=== PATIENT | female | born 1960 | race Caucasian/White ===

== ENCOUNTER 2023-07-19 10:38 | Emergency (ER) | payer BC, SELFPAY ==
[2023-07-19 10:55] VITALS: BP 135/98; BMI 28.7
--- NOTE | 2023-07-19 11:50 | ED.GENMED ---
History of Present Illness
General
Chief Complaint: Allergic Reaction
Time Seen by Provider: 07/19/23 11:29
Travel History
Have you had any contact with someone who has COVID-19?: No
Do you have any symptoms of coronavirus? Fever > 100 degrees, chills, cough, shortness of breath, sore throat, loss of taste or smell, muscle aches, or headache?: No
History of Present Illness
History of Present Illness:
62 yo female presents for evaluation of throat pain and dysphagia. Has hx of latex allergy And she states that anytime she is exposed she has a very similar presentation. Reports there is a large ulceration to the back of the throat causing her
pain. She did use an EpiPen as well as Benadryl this morning with only modest improvement. Denies any difficulty breathing or wheezing
Past History
Past History
ED Past Medical History: HTN, Hypercholesterolemia and Other (Diabetes)
ED Past Surgical History: Bowel resection, Gynecological and Other
Social History
Tobacco: Non-smoker
Alcohol: Occasional
Drug: None
Personal:
Living: with family
Employment: Employed
Family History
Family History: Other
Review of Systems
Review of Systems
Allergies reviewed?: Yes
All Other Systems: ROS reviewed and negative except as documented in HPI and ROS
Phy Exam
Physical Exam
Physical Exam:
GEN: Well appearing, NAD, WDWN
HEENT: Oral mucosa moist, no scleral icterus. Large linear ulceration to soft palate extending into uvula, no uvular edema or oropharyngeal edema
Cardiac: Regular rate
Lung: No respiratory distress, no tachypnea
MSK: No gross deformity or injuries
Skin: Good color, no pallor or jaundice, no rashes
Neuro: AO x3, moves all extremities freely
Psych: Calm, cooperative
Course
Orders/Labs/Results
Orders:
Orders
07/19/23 11:50
Dexamethasone Pf [Decadron] 10 mg PO NOW STA
Vital Signs
Initial and Last Documented VS:
Initial Vital Signs
Temp Pulse Resp BP Pulse Ox
98.2 F 94 16 135/98 98
07/19/23 10:55 07/19/23 10:55 07/19/23 10:55 07/19/23 10:55 07/19/23 10:55
Last Documented Vital Signs
Temp Pulse Resp BP Pulse Ox
98.2 F 94 16 156/68 97
07/19/23 10:55 07/19/23 12:03 07/19/23 12:03 07/19/23 12:03 07/19/23 12:03
MDM/Problems Addressed
MDM/Problems Addressed:
Will treat with corticosteroids as this is likely injury or allergy from ingested food yesterday
*Critical Care Note
Total Time (30-74mins, 75-104mins- exclusive of procedures): Not Applicable
ED Attending Note
-
Portions of this chart may have been created with voice recognition software.� Occasional wrong word or��sound alike� substitutions may have occurred due to the inherent limitations of voice recognition software.
Discharge Plan
Departure
Patient Disposition: Home (Routine Discharge)
Date of Disposition: 07/19/23
Time of Disposition: 11:50
Patient with high blood pressure during this ER visit?: No
Discharge Problem:
Allergic reaction
Instructions: Allergic Reaction ED
Prescriptions:
New
methylprednisolone [Medrol (David)] 4 mg tablets,dose pack
See Rx Instructions .ROUTE .COMPLEX Qty: 21 0RF
Rx Instructions:
orally per package directions
epinephrine [Auvi-Q] 0.3 mg/0.3 mL auto-injector
0.3 ml IM ONCE Qty: 2 0RF
No Action
multivitamin [One Daily Essential] 1 EACH tablet
1 ea PO DAILY
atorvastatin 40 MG tablet
40 mg PO QPM
diltiazem HCl [Cardizem CD] 360 MG capsule,extended release 24hr
360 mg PO DAILY
metformin 1,000 MG tablet
1,000 mg PO .DAILY PRE DINNER
fluticasone propion-salmeterol [Advair Diskus] 1 DISK blister with device
1 puff inhalation DAILY
calcium polycarbophil [Fiber-Tabs] 625 MG tablet
625 mg PO DAILY
losartan [Cozaar] 100 MG tablet
100 mg PO QPM
fenofibrate nanocrystallized 145 MG tablet
145 mg PO DAILY
omega 8-[id number]-gsy-fish oil [Fish Oil] 1 EACH capsule
1 ea PO QPM
Cranberry
2 cap PO DAILY
prednisone 50 MG tablet
50 mg PO DAILY Qty: 5 0RF
epinephrine [EpiPen] 0.3 MG/0.3/SYRINGE auto-injector
0.3 mg IM .STAT PRN (Reason: SOB) Qty: 2 0RF
Referrals:
Katt Tran DO [Family Provider] -
Interventions
Interventions:
*Risk Screen - Suicide Last Done: 07/19/23 10:55
*General Assessment Last Done: 07/19/23 12:14
*Neglect/Abuse Screening Last Done: 07/19/23 10:55
ED- Fall Risk Assessment Last Done: 07/19/23 10:55
*ED COVID-19 Vaccine History Last Done: 07/19/23 10:55
*Nursing Disposition Last Done: 07/19/23 12:14
ED- Cardiac Assessment Last Done: 07/19/23 12:05
ED- Pulmonary Assessment Last Done: 07/19/23 12:05
ED-Skin Assessment Last Done: 07/19/23 12:05
Discharge Date and Time
Discharge Date/Time: 07/19/23 12:17
Print Language: BRUNEIAN
[2023-07-19] MEDS: DECADRON 10 MG PO (12:00)
[2023-07-19 12:03] VITALS: BP 156/68
== END 2023-07-19 12:17 | disposition home or self-care (01) ==
LOC: EMR 10:38
PROVIDERS: EMERGENCY PHYSICIAN Student in an Organized Health Care Education/Training Program; FAMILY PHYSICIAN Family Medicine
DX: T78.40XA Allergy, unspecified, initial encounter (principal)
CPT/HCPCS: 99283

== ENCOUNTER → 2024-03-11 13:36 | Outpatient (REF) | payer BC, SELFPAY | LOC: HWRAD 13:36 | PROVIDERS: ATTENDING PHYSICIAN Family Medicine | DX: R06.02 Shortness of breath (principal) | CPT/HCPCS: 71046 ==

== ENCOUNTER → 2024-05-12 07:49 | Outpatient (REF) | payer BC, SELFPAY | LOC: HWRCS 07:49 | PROVIDERS: ATTENDING PHYSICIAN Internal Medicine Cardiovascular Disease; FAMILY PHYSICIAN Family Medicine | DX: R07.89 Other chest pain (principal) | CPT/HCPCS: 78452; 93017; A9500 ==

== ENCOUNTER → 2024-07-01 13:43 | Outpatient (REF) | payer BC, SELFPAY | LOC: HWRAD 13:43 | PROVIDERS: FAMILY PHYSICIAN Family Medicine; REFERRING PHYSICIAN Obstetrics & Gynecology | DX: Z13.820 Encounter for screening for osteoporosis (principal) | CPT/HCPCS: 77080 ==

== ENCOUNTER → 2025-02-16 09:06 | Outpatient (REF) | payer BC, SELFPAY | LOC: HWWDC 09:06 | PROVIDERS: ATTENDING PHYSICIAN Family Medicine | DX: Z12.31 Encounter for screening mammogram for malignant neoplasm of breast (principal) | CPT/HCPCS: 77063; 77067 ==

== ENCOUNTER → 2025-03-07 08:06 | Outpatient (REF) | payer BC, SELFPAY | LOC: HWRAD 08:06 | PROVIDERS: ATTENDING PHYSICIAN Family Medicine | DX: R51.9 Headache, unspecified (principal) | CPT/HCPCS: 70450 ==